=== PATIENT | female | born 1970 | race Caucasian/White ===

== ENCOUNTER 2016-10-16 14:39 | Outpatient (CLI) | payer OTHER ==
--- NOTE | 2016-10-16 15:21 | DIAGNOSTIC IMAGING REPORT ---
PROCEDURE: XR TOE - LEFT INDICATION: LEFT FOOT PAIN TECHNIQUE: A P foot and two views of the left fifth toe. COMPARISON: None. FINDINGS: Nondisplaced fracture through the distal phalanx of the fifth toe. IMPRESSION: 1. Nondisplaced fracture through the distal phalanx of the fifth toe.
== END 2016-10-16 23:00 ==
LOC: XR SRH 14:39
DX: S92.425A Nondisplaced fracture of distal phalanx of left great toe, initial encounter for closed fracture (principal)